=== PATIENT | female | born 1965 | race Caucasian/White ===

== ENCOUNTER 2024-04-09 19:00 | Emergency (ER) | payer BC, SELFPAY ==
[2024-04-09 19:06] VITALS: BP 183/83; PULSE 79; RESP 18; TEMP 36.6; O2SAT 100; BMI 25.6
--- NOTE | 2024-04-09 19:26 | ED_ITS ---
<Statement entered by Angelique Ribeiro DO - 04/09/24 23:43> I was consulted by the ZACHARY, and we discussed the complexity of the problems being addressed. I approved the treatment and management plan for this patient's care in the emergency department, thus performing a substantive portion of the medical decision making. Angelique Ribeiro DO Discharge Plan Disposition Patient Disposition: Home, Self-Care Condition: Good Prescriptions Prescriptions: No Action trazodone 50 mg Tablet 12.5 mg PO DAILY simvastatin 40 mg Tablet 40 mg PO HS cetirizine [Aller-Eleazar] 10 mg Tablet 10 mg PO DAILY alendronate 70 mg Tablet 70 mg PO WEEKLY zinc 50 mg Tablet 50 mg PO DAILY aspirin 81 mg Tablet 81 mg PO DAILY folic acid 800 mcg Tablet 0.8 mg PO DAILY Referrals Follow up/Referrals: Prasanna Gonzales DO [Staff Physician] - See instructions Jocelyn Lockett MD [Primary Care Provider] - See instructions Activity Restrictions/Add. Instructions Additional Instructions/Restrictions: I recommend following up with the PD surgeon that following with however should you wish to seek a second opinion I have given you the name of an orthopedic surgeon here Dr. Tigre Gonzales. I will continue the plan as discussed I do believe that you may likely need an MRI at this point. Please continue wearing your brace and following your outpatient plan as you have. Clinical Impressions Clinical Impression: Pain in right wrist Print Language Print Language: Lithuanian Discharge ED Provider: Angelique Ribeiro General Adult HPI General Chief complaint: PAIN Stated complaint: RT wrist pain Time Seen by Provider: 04/09/24 19:26 Mode of Arrival: Ambulatory Source of Information: Patient Description of Symptoms (Recalled from ER Triage Doc. by RN): Pt presents for c/o right wrist pain. Pt states she randomly developed pain to her wrist and was seen by her PCP and had x-rays done. Pt was said to have a small fracture. Pt followed up with ortho and was advised that there may have not been a fracture but she has continued to have pain. Pt states she had a cortisone shot and was a given a prescription for meloxicam. Pt states last night she went to shut a door and she had a sharp pain to her wrist and has since had pain. History of Present Illness HPI narrative: Presents for evaluation of right wrist pain. Patient reports that she has had several weeks of atraumatic at the right ulnar styloid side of her wrist. 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 In any event because of this she went to her PCP who did x-rays that may have shown a questionable fracture that was then referred on to orthopedic surgery. Patient saw orthopedic surgeon who recommended wrist bracing and conservative management according to the patient. She went back because it was not improved and he reportedly injected cortisone at the ulnar side of the wrist that did not seem to improve her discomfort. She presents today for evaluation because she had an acute pain when she tried to close a sliding glass door. She denies any numbness tingling fever chills hemoptysis hematochezia melena nausea vomit diarrhea loss of motor or sensory Related Data Home Medications ?Medication ?Instructions ?Recorded ?Confirmed alendronate 70 mg tablet 70 mg PO WEEKLY 04/09/24 04/09/24 aspirin 81 mg tablet 81 mg PO DAILY 04/09/24 04/09/24 cetirizine 10 mg tablet (Aller-Eleazar) 10 mg PO DAILY 04/09/24 04/09/24 folic acid 800 mcg tablet 0.8 mg PO DAILY 04/09/24 04/09/24 simvastatin 40 mg tablet 40 mg PO HS 04/09/24 04/09/24 trazodone 50 mg tablet 12.5 mg PO DAILY 04/09/24 04/09/24 zinc 50 mg tablet 50 mg PO DAILY 04/09/24 04/09/24 Allergies Allergy/AdvReac Type Severity Reaction Status Date / Time azithromycin Allergy Rash Verified 04/09/24 19:14 [facility] Disclaimer: The information contained in this section may have been updated after the patient was seen, as this information can be updated by other users. Social History Smoking Status: Never smoker alcohol intake: never current occupational status: employed Travel in the last 8 weeks: None ROS Obtained: Yes Systems reviewed as appropriate & no additional complaints except as documented Physical Exam General General appearance: alert and in no apparent distress Respiratory Respiratory exam: Present normal lung sounds bilaterally Cardiovascular Cardiovascular exam: Present regular rate Neurological Exam Neurological exam: Present alert and oriented X3 Medical Decision Making Medical Records Screening: Per USPSTF and CDC recommendations, given the prevalence of disease in our region, it is our hospital?s policy to screen for HIV and viral Hepatitis for all patients aged 18 and over and those with ongoing risk factors. Agustin Inquiry Pt receiving controlled substance: No Vital Signs: 04/09/24 19:06 Temperature 98 F Temperature Source Oral Pulse Rate [Right] 79 Respiratory Rate 18 Blood Pressure [Right Arm] 183/83 H Blood Pressure Mean [Right Arm] 116 Blood Pressure Source [Right Arm] Automatic Cuff Blood Pressure Position [Right Arm] Sitting 02 Sat by Pulse Oximetry 100 Oxygen Delivery Method Room Air Orders (Tests/Meds): ORDERS Category Date Time Status Wrist XR right minimum 3 views [XR wrist RT min 3V] Exams 04/09/24 20:01 Completed Stat Medical Decision Narrative: In summary patient is a 88-year-old female who presents to the emergency department for evaluation of right wrist pain. Patient is dynamically stable upon arrival, afebrile. Physical exam is remarkable for mild tenderness to palpation at the ulnar styloid of the right wrist but patient has no redness no swelling no edema no ecchymosis no skin changes no breakdown. She is neurovascularly intact distally. She actually has full range of motion.. Differential diagnosis includes tendinitis versus possible occult fracture. Initial workup will be conducted with plain film x-rays. Initial interventions were considered however patient reports her pain is a 1 out of 10 and no other intervenable symptoms thus deferred. Initial workup reviewed by me I do not see any acute bony injury and the right wrist prior to radiology read.. Given this I had a shared decision-making discussion with the patient regarding her LOVE find ings and recommendations and I have recommended the patient to return to the orthopedic surgeon who she originally saw or seek a second opinion. I have given her the name of Dr. Gonzales here in [place] as an option but she can feel free to seek whoever she choose. Given we have no red flags and ruled out any serious or life-threatening problem patient is appropriate for discharge with her continued plan wrist bracing and conservative management with close follow- up with orthopedics and her PCP if she has any new or worsening signs or symptoms. Critical Care Critical Care Time Critical Care Time: No
--- NOTE | 2024-04-09 20:01 | XR_ITS ---
PROCEDURE INFORMATION: Exam: XR Right Wrist Exam date and time: 04/09/2024 7:59 PM Age: 58 years old Clinical indication: Pain; Wrist; Right; No known inj; Additional info: Pain at lateral distal radius TECHNIQUE: Imaging protocol: Radiologic exam of the right wrist. Views: 3 or more views. COMPARISON: No relevant prior studies available. FINDINGS: Bones/joints: Abnormality involving the ulnar styloid process with lucencies . This could be due to degenerative changes but infection can give a similar appearance. No acute fracture or dislocation or additional focal bony lesions. Soft tissues: Normal. IMPRESSION: Abnormality involving the ulnar styloid process with lucencies . This could be due to degenerative changes but infection can give a similar appearance. Correlate clinically
[2024-04-09 22:16] VITALS: BP 158/98; PULSE 89; RESP 18; TEMP 36.8; O2SAT 98
--- NOTE | 2024-04-09 22:19 | PC.NURSE ---
2494 home medications unable to be reviewed due to demands of department. Pt voices concern about it taken an hour discharge. education provided to patient about status of the ER at this time and apologized for the delay
== END 2024-04-09 22:18 | disposition home or self-care (01) ==
PROVIDERS: Emergency Provider Emergency Medicine; PCP Internal Medicine
DX: M25.531 Pain in right wrist (principal)
CPT/HCPCS: 73110; 99283